=== PATIENT | male | born 1930 | race Caucasian/White ===

== ENCOUNTER 2016-08-16 14:40 | Emergency (ER) | payer MEDICARE, BC ==
--- NOTE | 2016-08-16 15:29 | EDM.PDOC ---
ED HPI GENERAL MEDICAL PROBLEM - General Chief Complaint: Cardiovascular Problem Stated Complaint: MEDICAL VIA TRI Time Seen by Provider: 08/16/16 14:43 Source of Information: Reports: Patient, Family, RN Notes Reviewed History Limitations: Reports: No Limitations - History of Present Illness INITIAL COMMENTS - FREE TEXT/NARRATIVE: 85-year-old gentleman presents emergency department day following an event at [employer], he was sitting suddenly felt ill then became unresponsive total event lasted 2-3 minutes he did not fall remained in the sitting position awoke he had urinated but was not confused was able to stand and walk. - Related Data Allergies Allergy/AdvReac Type Severity Reaction Status Date / Time aspirin Allergy Hives Verified 08/16/16 15:32 Home Meds: Home Meds Acetaminophen [Tylenol Extra Strength] 1,000 mg PO ASDIRECTED 08/16/16 [History] Clopidogrel [Plavix] 75 mg PO DAILY 08/16/16 [History] Lovastatin [Mevacor] 40 mg PO BEDTIME 08/16/16 [History] Valsartan [Diovan] 1 tab PO DAILY 08/16/16 [History] amLODIPine [Norvasc] 5 mg PO DAILY 08/16/16 [History] Past Medical History HEENT History: Reports: Cataract Cardiovascular History: Reports: Aneurysm, Arrhythmia, Hypertension, Other (See Below) Other Cardiovascular History: bradycardia Musculoskeletal History: Reports: Arthritis, Fracture Neurological History: Reports: CVA Hematologic History: Reports: Blood Transfusion(s) - Infectious Disease History Infectious Disease History: Reports: Chicken Pox, Measles - Past Surgical History HEENT Surgical History: Reports: Cataract Surgery Cardiovascular Surgical History: Reports: Aneurysm, Carotid Endarterectomy GI Surgical History: Reports: Appendectomy, Hernia Repair/Other, Other (See Below) Other GI Surgeries/Procedures: AAA Musculoskeletal Surgical History: Reports: Other (See Below) Other Musculoskeletal Surgeries/Procedures:: bilateral knee replacement Social & Family History - Tobacco Use Smoking Status *Q: Former Smoker Used Tobacco, but Quit: Yes Month Tobacco Last Used: 1987 - Caffeine Use Caffeine Use: Reports: Coffee - Recreational Drug Use Recreational Drug Use: No ED ROS GENERAL - Review of Systems Review Of Systems: See Below Constitutional: Reports: No Symptoms HEENT: Reports: No Symptoms Respiratory: Reports: No Symptoms Cardiovascular: Reports: Syncope GI/Abdominal: Reports: No Symptoms : Reports: No Symptoms Musculoskeletal: Reports: No Symptoms Skin: Reports: No Symptoms Neurological: Reports: Syncope Psychiatric: Reports: No Symptoms ED EXAM, GENERAL - Physical Exam Exam: See Below Free Text/Narrative:: General: Male, not in any distress, alert and oriented x3 HEENT: head is atraumatic normocephalic, eyes pupils equal round reactive to light, sclera clear no conjunctivitis appreciated. Extraocular eye movements intact Ears hearing is in place bilaterally. Nose no septal deviation, nares are clear, no blood present. Mouth mucosa is moist and pink no erythema or exudate noted in soft palate, tongue is midline uvula is midline, dentures in place. Neck: Supple no thyromegaly no tracheal deviation. Nodes: Cervical nodes subclavicular nodes nontender no palpable lymphadenopathy noted. Lungs: clear to auscultation bilaterally with symmetrical respirations, no adventitious noise appreciated. CV: Regular rate and rhythm S1 and S2 appreciated no murmurs rubs or gallops noted. Abdomen: Soft, nontender, no palpable masses or organomegaly appreciated, no distention no guarding bowel sounds are present, . Neuro: Cranial nerves II through XII grossly intact power is 5 x 5 upper lower extremities no dysdiadochokinesis Skin: Warm and dry, intact Extremities: No lower extremity edema appreciated, . Course - Vital Signs Last Recorded V/S: Last Vital Signs Temp 97.7 F 08/16/16 14:54 Pulse 51 L 08/16/16 16:00 Resp 15 08/16/16 16:00 BP 162/77 H 08/16/16 16:00 Pulse Ox 96 08/16/16 16:00 - Orders/Labs/Meds Orders: Active Orders 24 hr Category Date Time Status Cardiac Monitoring [RC] .As Directed Care 08/16/16 15:26 Active EKG Documentation Completion [RC] ASDIRECTED Care 08/16/16 15:26 Active EKG 12 Lead [EK] Stat Ther 08/16/16 15:26 Ordered Labs: Laboratory Tests 08/16/16 08/16/16 Range/Units 15:35 15:35 WBC 8.5 (4.5-11.0) K/uL RBC 3.90 L (4.30-5.90) M/uL Hgb 12.4 (12.0-15.0) g/dL Hct 37.6 L (40.0-54.0) % MCV 96 (80-98) fL MCH 32 H (27-31) pg MCHC 33 (32-36) % Plt Count 193 (150-400) K/uL Neut % (Auto) 76 H (36-66) % Lymph % (Auto) 16 L (24-44) % Rooks % (Auto) 8 H (2-6) % Eos % (Auto) 1 L (2-4) % Baso % (Auto) 0 (0-1) % Sodium 137 L (140-148) mmol/L Potassium 4.2 (3.6-5.2) mmol/L Chloride 101 (100-108) mmol/L Carbon Dioxide 29 (21-32) mmol/L Anion Gap 11.2 (5.0-14.0) mmol/L BUN 29 H (7-18) mg/dL Creatinine 1.5 H (0.8-1.3) mg/dL Est Cr Clr Drug Dosing 35.82 mL/min Estimated GFR (MDRD) 44 L (>60) Glucose 102 (74-106) mg/dL Calcium 8.5 (8.5-10.1) mg/dL Total Bilirubin 0.3 (0.2-1.0) mg/dL AST 17 (15-37) U/L ALT 22 (12-78) U/L Alkaline Phosphatase 89 (46-116) U/L CK-MB (CK-2) 0.6 (0-3.6) mg/mL Troponin I < 0.017 (0.000-0.056) ng/mL Total Protein 7.2 (6.4-8.2) g/dL Albumin 3.7 (3.4-5.0) g/dL Globulin 3.5 (2.3-3.5) g/dL Albumin/Globulin Ratio 1.1 L (1.2-2.2) Departure - Departure Time of Disposition: 16:35 Disposition: Home, Self-Care 01 Condition: good Clinical Impression: Syncopal episodes Qualifiers: Syncope type: unspecified Qualified Code(s): R55 - Syncope and collapse Forms: ED Department Discharge Additional Instructions: please followup with cardiology upon return home, call return to the emergency department with worsening of symptoms - My Orders Last 24 Hours: My Active Orders 08/16/16 15:26 Cardiac Monitoring [RC] .As Directed EKG Documentation Completion [RC] ASDIRECTED EKG 12 Lead [EK] Stat - Assessment/Plan Last 24 Hours: My Active Orders 08/16/16 15:26 Cardiac Monitoring [RC] .As Directed EKG Documentation Completion [RC] ASDIRECTED EKG 12 Lead [EK] Stat Plan: Assessment Acuity = acute Site and laterality = syncopal event Etiology = unclear etiology Manifestations = none Location of injury = home Lab values =CBC, CMP, troponin, CK-MB all within normal limits, EKG demonstrates a sinus rhythmwith a first degree block Plan I did review lab and EKG results with him and his family he has been offered a pacemaker in the past but declined, the plan is to followup with cardiology upon return home Patient was in agreement with the plan all questions were answered, they were instructed to return to the emergency department or call for worsening symptoms. This note was dictated using [employer] voice recognition software please call with any questions.
[2016-08-16 16:35] VITALS: BP 152/99
== END 2016-08-16 17:04 | disposition home or self-care (01) ==
LOC: JP.ED 14:40
DX: R55 Syncope and collapse (principal); I10 Essential (primary) hypertension; M19.90 Unspecified osteoarthritis, unspecified site; Z79.899 Other long term (current) drug therapy; Z88.6 Allergy status to analgesic agent; Z90.49 Acquired absence of other specified parts of digestive tract; Z98.49 Cataract extraction status, unspecified eye; Z96.653 Presence of artificial knee joint, bilateral; Z98.890 Other specified postprocedural states; Z86.73 Personal history of transient ischemic attack (TIA), and cerebral infarction without residual deficits; Z87.891 Personal history of nicotine dependence
CPT/HCPCS: 36415; 80053; 82553; 84484; 85025; 93005; 93010; 99283; 99284-25